=== PATIENT | female | born 1960 | race African-American/Black ===

== ENCOUNTER 2024-06-24 12:08 | Emergency (ER) | payer MEDICARE, OTHER ==
[~2024-06-24] VITALS: Ht 165.1 cm; Wt 58.1 kg
[2024-06-24 12:10] VITALS: TEMP 98.1; O2SAT 100
[2024-06-24 15:32] VITALS: BP 143/86; PULSE 68; RESP 16; O2SAT 98
== END 2024-06-24 15:33 | disposition home or self-care (01) ==
LOC: ER 12:08
DX: M25.562 Pain in left knee (principal); M79.89 Other specified soft tissue disorders; I10 Essential (primary) hypertension; K21.9 Gastro-esophageal reflux disease without esophagitis; Z88.2 Allergy status to sulfonamides; Z87.891 Personal history of nicotine dependence
CPT/HCPCS: 93971; 99284